=== PATIENT | female | born 1980 | race Native Hawaiian/Other Pacific Islander ===

== ENCOUNTER 2018-11-14 08:26 | Emergency (ER) | payer OTHER ==
[2018-11-14 08:32] VITALS: BP 159/77
[2018-11-14 09:00] LABS: Basophils % (Auto) 0.3 % (0.0-1.8); Eosinophils % (Auto) 0.1 % (0.0-4.3); Hematocrit 39.1 % (30.3-42.9); Hemoglobin 13.5 gm/dl (10.1-14.3); Lymphocytes # (Auto) 2.3 K/mm3 (1.2-5.4); Lymphocytes % (Auto) 18.7 % (13.4-35.0); Mean Corpuscular HGB Conc 34 % (30-34); Mean Corpuscular Volume 87 fl (79-97); Monocytes # (Auto) 0.6 K/mm3 (0.0-0.8); Monocytes % (Auto) 5.2 % (0.0-7.3); Platelet Count 283 K/mm3 (140-440); Red Blood Count 4.48 M/mm3 (3.65-5.03); Red Cell Distribution Width 14.2 % (13.2-15.2)
[2018-11-14 09:26] LABS: Alanine Aminotransferase 31 units/L (7-56); Albumin 4.4 g/dL (3.9-5); BUN/Creatinine Ratio 20; Blood Urea Nitrogen 12 mg/dL (7-17); Calcium 9.3 mg/dL (8.4-10.2); Hemolysis Index 3
[2018-11-14] MEDS ORDERED: ALUM-MAG HYDROX-SIMETH 200-200-20MG/5ML PO ONE (09:27)
[2018-11-14] MEDS ORDERED: LIDOCAINE VISCOUS 2% PO ONE (09:27)
--- NOTE | 2018-11-14 09:43 | Emergency Department Report ---
HPI - General Chief Complaint: Abdominal Pain Time Seen by Provider: 11/14/18 09:10 - HPI HPI: 38-year-old [place] female presents to the emergency department with acute on chronic epigastric burning pain. Overall it has been going on for 2 months but it has worsened over the past few days. She complains of a burning in her stomach and has had no relief with her [id number] indications include Mylanta and omeprazole. She does have a history of gastritis and GERD. She does not currently have insurance and therefore does not have a primary care physician or revenue coordinator, but has had an EGD in the past. No recent travel or sick contacts at home. When questioning her about her diet, the patient does admit to drinking caffeinated sodas and many tomato-based foods. She also has some mild constipation issues. No fever, back pain, dysuria, vaginal bleeding or discharge. However the patient did have some nausea and vomiting overnight. ED Past Medical Hx - Past Medical History Previous Medical History?: Yes Hx GERD: Yes Additional medical history: Gastritis - Surgical History Past Surgical History?: Yes Additional Surgical History: EGD - Social History Smoking Status: Never Smoker Substance Use Type: Other - Medications Home Medications: Home Medications Medication Instructions Recorded Confirmed Last Taken Type Ondansetron [Zofran Odt] 4 mg PO Q8HR PRN #12 tab.rapdis 11/14/18 Unknown Rx ED Review of Systems ROS: Stated complaint: STOMACH PAIN/BURNING/VOMITTING Other details as noted in HPI Comment: All other systems reviewed and negative Constitutional: denies: chills, fever Eyes: denies: eye pain, vision change ENT: denies: ear pain, throat pain Respiratory: denies: cough, shortness of breath Cardiovascular: denies: chest pain, palpitations Gastrointestinal: abdominal pain, nausea, vomiting, constipation. denies: diarrhea Genitourinary: denies: dysuria, discharge Musculoskeletal: denies: back pain, arthralgia Skin: denies: rash, lesions Neurological: denies: headache, weakness Physical Exam - Physical Exam Vital Signs: Vital Signs 11/14/18 08:27 Temperature 98.9 F Pulse Rate 81 Respiratory 18 Rate Blood Pressure 159/77 O2 Sat by Pulse 100 Oximetry Physical Exam: GENERAL: The patient is well-developed well-nourished. HENT: Normocephalic. Atraumatic. Patient has moist mucous membranes. EYES: Extraocular motions are intact. NECK: Supple. Trachea is midline. CHEST/LUNGS: Clear to auscultation. There is no respiratory distress noted. HEART/CARDIOVASCULAR: Regular. There is no tachycardia. There is no murmur. ABDOMEN: Abdomen is soft. There is some epigastric tenderness to palpation. No guarding. Patient has normal bowel sounds. There is no abdominal distention. SKIN: Skin is warm and dry. NEURO: The patient is awake, alert, and oriented. The patient is cooperative. The patient has no focal neurologic deficits. The patient has normal speech. MUSCULOSKELETAL: There is no tenderness or deformity. There is no limitation range of motion. There is no evidence of acute injury. ED Course Vital Signs 11/14/18 08:27 Temperature 98.9 F Pulse Rate 81 Respiratory 18 Rate Blood Pressure 159/77 O2 Sat by Pulse 100 Oximetry ED Medical Decision Making - Lab Data Result diagrams: 11/14/18 08:47 11/14/18 08:47 - Radiology Data Radiology results: image reviewed interpreted by me: Abdominal x-ray shows nonspecific nonobstructive bowel gas - Medical Decision Making this patient presents to the emergency department with a complaint of some epigastric abdominal pain as well as some nausea and vomiting overnight. The epigastric abdominal pain has been going on over the past few months and she does have a previous diagnosis of acid reflux. Labs have been unremarkable except for urinalysis that shows 80 ketones showing some dehydration. No renal insufficiency or prerenal azotemia. Abdominal x-ray shows nonspecific nonobstructive bowel gas. Patient was given a GI cocktail and upon reevaluation says that she is feeling improved. Vital signs have been stable throughout her ED course. We discussed some dietary and/or lifestyle changes to make to decrease her acid reflux. She has been given a referral for primary care and gastroenterology. She will return to the emergency Department with any worsening of her symptoms or any acute distress. - Differential Diagnosis acid reflux, cholelithiasis, pancreatitis, gastritis Critical Care Time: No Critical care attestation.: If time is entered above; I have spent that time in minutes in the direct care of this critically ill patient, excluding procedure time. ED Disposition Clinical Impression: Epigastric abdominal pain, Dehydration GERD (gastroesophageal reflux disease) Qualifiers: Esophagitis presence: esophagitis presence not specified Qualified Code(s): K21.9 - Gastro-esophageal reflux disease without esophagitis Hypertension Qualifiers: Hypertension type: essential hypertension Qualified Code(s): I10 - Essential (primary) hypertension Disposition: TO HOME OR SELFCARE Is pt being admited?: No Condition: Stable Instructions: Gastroesophageal Reflux Disease (ED), Abdominal Pain (ED), Hypertension (ED) Additional Instructions: Please try to follow up with a primary care physician in the next few days. I a m giving him a referral for a local revenue coordinator, Dr. Salgado, to follow up regarding her abdominal pain and gastroesophageal reflux disease/GERD. Try and stay away from foods that are spicy, acidic, tomato-based. Try to stay away from alcohol and caffeinated drinks such as soda. Try not to eat too late at night eat and then lay down shortly afterwards. Increase your rehydration. Return to the emergency department with any worsening of your symptoms or any acute distress. Prescriptions: Ondansetron [Zofran Odt] 4 mg PO Q8HR PRN #12 tab.rapdis PRN Reason: Nausea Referrals: EJFFERY SALGADO MD [Staff Physician] - 3-5 Days [facility] [Outside] - 3-5 Days Forms: Accompanied Note, Work/School Release Form(ED) Time of Disposition: 10:58
[2018-11-14 09:45] LABS: Bacteria,Urine 4+ /HPF (Negative); Bilirubin,Urine NEG (Negative); Blood,Urine MOD (Negative); Color,Urine Yellow (Yellow); Mucus,Urine FEW /HPF; Protein,Urine <15 mg/dL mg/dL (Negative); Urobilinogen,Urine < 2.0 mg/dL (<2.0)
[2018-11-14 09:46] LABS: HCG Qualitative,Urine Negative (Negative)
[2018-11-14] MEDS ORDERED: ZOFRAN ODT PO ONE (09:54)
--- NOTE | 2018-11-14 10:32 | XRay Report ---
ABDOMEN 2 VIEW(S) INDICATION / CLINICAL INFORMATION: Eft upper quadrant pain since last night. COMPARISON: None available. FINDINGS: TUBES / LINES: None. BOWEL GAS PATTERN: No significant abnormality. FREE AIR / EXTRALUMINAL GAS: None seen. ADDITIONAL FINDINGS: No significant additional findings. IMPRESSION: 1. No significant abnormality. Signer Name: Scott Peterson MD Signed: 11/14/2018 10:28 AM Workstation Name: [id number]
== END 2018-11-14 11:16 | disposition home or self-care (01) ==
LOC: ED 08:26
DX: E86.0 Dehydration (principal); K21.9 Gastro-esophageal reflux disease without esophagitis; I10 Essential (primary) hypertension
CPT/HCPCS: 36415; 74019; 80053; 81001; 81025; 83690; 85025; Q0162